=== PATIENT | male | born 1955 | race African-American/Black ===

== ENCOUNTER 2017-05-09 21:18 | Emergency (ER) | payer MEDICARE ==
[~2017-05-09] VITALS: Ht 170.2 cm; Wt 86.0 kg
[~2017-05-09 21:18] MED LIST: ALBU1AER INH; CLON.5 PO; GLIP5TAB8 PO; METF1000 PO; PERC5TAB12 PO; REME45TA PO
[2017-05-09 21:19] VITALS: BP 141/86; PULSE 94; RESP 16; TEMP 98; O2SAT 99
[2017-05-09] MEDS ORDERED: OMEGCAP PO (22:32)
[2017-05-09] MEDS ORDERED: GLIP10TA6 PO (22:32)
[2017-05-09] MEDS ORDERED: METF1000 PO (22:32)
[2017-05-09] MEDS ORDERED: MULT1TAB46 PO (22:32)
[2017-05-09] MEDS ORDERED: LOSA25TA PO (22:32)
[2017-05-09] MEDS ORDERED: ASPI81CH6 CHEW (22:32)
[2017-05-09] MEDS ORDERED: CLON0.5T PO (22:32)
[2017-05-09] MEDS ORDERED: VITA250T3 PO (22:32)
[2017-05-09 22:35] VITALS: BP 167/78; PULSE 78; RESP 16; O2SAT 99
[2017-05-09 22:39] VITALS: O2SAT 97
[2017-05-09 22:52] LABS: AUTOMATED NEUTROPHIL # 3.8 TH/MM3 (1.8-7.7); BASOPHIL # 0.1 TH/MM3 (0-0.2); BASOPHIL % 0.7 % (0.0-2.0); EOSINOPHIL # 0.2 TH/MM3 (0-0.4); EOSINOPHIL % 2.2 % (0.0-4.0); HEMATOCRIT 40.8 % (39.0-51.0); HEMOGLOBIN 13.7 GM/DL (13.0-17.0); LYMPH % 40.6 % (9.0-44.0); LYMPHOCYTE # 3.3 TH/MM3 (1.0-4.8); MEAN CORPUSCULAR HEMOGLOBIN 29.5 PG (27.0-34.0); MEAN CORPUSCULAR HGB CONC 33.5 % (32.0-36.0); MONO % 9.2 % (0.0-8.0); MONOCYTE # 0.7 TH/MM3 (0-0.9); NEUT % 47.3 % (16.0-70.0); PLATELET COUNT 290 TH/MM3 (150-450); RED BLOOD COUNT 4.64 MIL/MM3 (4.50-5.90); RED CELL DISTRIBUTION WIDTH 12.6 % (11.6-17.2)
--- NOTE | 2017-05-09 22:56 | RADRPT ---
EXAM DATE/TIME: 05/09/2017 22:43 [place] COMPARISON: No previous studies available for comparison. INDICATIONS : Chest pain; near syncopal episode. MEDICAL HISTORY : None. SURGICAL HISTORY : None. ENCOUNTER: Initial ACUITY: 1 day PAIN SCORE: 7/10 LOCATION: Bilateral chest FINDINGS: Single AP view of the chest. Mildly enlarged cardiac silhouette. Lungs are clear. No evidence of pleu ral effusion or pneumothorax. CONCLUSION: Mildly enlarged cardiac silhouette. No other acute cardiopulmonary disease identified. Dieudonne Higuera MD on May 09, 2017 at 22:50 Board Certified Radiologist. This report was verified electronically.
[2017-05-09 23:07] LABS: BICARBONATE 27.5 MEQ/L (21.0-32.0); BLOOD UREA NITROGEN 26 MG/DL (7-18); CALCIUM 9.3 MG/DL (8.5-10.1); CHLORIDE 102 MEQ/L (98-107); CREATININE 1.07 MG/DL (0.60-1.30); GLOMERULAR FILTRATION RATE 85 ML/MIN (>89); GLUCOSE,RANDOM 280 MG/DL (74-106); INTERNATIONAL NORMALIZED RATIO 1.1 RATIO; PROTHROMBIN TIME - PATIENT 10.7 SEC (9.8-11.6); SODIUM (NA) 138 MEQ/L (136-145); TROPONIN I LESS THAN 0.02 NG/ML (0.02-0.05)
[2017-05-09] MEDS ORDERED: KETOROLAC TROMETHAMINE 30 MG/ML (IVP) VIAL IV PUSH ONE (23:15)
--- NOTE | 2017-05-09 23:25 | PD ---
HPI Chief Complaint: Chest Pain Time Seen by Provider: 22:30 Travel History International Travel<30 days: No Contact w/Intl Traveler<30days: No Traveled to known affect area: No History of Present Illness HPI Patient is a 61-year-old male who says he is having left-sided shoulder area pain and he came when he was playing a video game and almost fell asleep but he said he was wide-awake when he started to not off it is kind of confusing story he did not fall he did not hit his head and it lasted just a brief second but he insists this is why he came to the ER he has a history of chest pain he says off and on for over years and his last stress test 3 months ago was normal in the ER he is not diaphoretic is not nausea is not vomiting no signs of any cardiac ischemia and process first EKG is normal sinus rhythm and his pressure is 167/70 he takes enalapril he reports for his blood pressure. Otherwise he is very healthy active younger than appearing 61-year-old who goes to the gym less weights and does cardiovascular workup he did not take anything to alleviate the pain he has not seen another doctor for this complaint movement seems to make it worse PFSH Past Medical History Anxiety: Yes Diabetes: Yes Patient Takes Glucophage: Yes Diminished Hearing: No Hypertension: Yes Tetanus Vaccination: < 5 Years Influenza Vaccination: Yes Social History Alcohol Use: No Tobacco Use: No Substance Use: No Allergies-Medications (Allergen,Severity, Reaction): Coded Allergies: penicillin G (Unverified Allergy, Mild, UNKNOWN- CHILD, 12/18/16) Reported Meds & Prescriptions Reported Meds & Active Scripts Active Reported Losartan (Losartan Potassium) 25 Mg Tab 25 Mg PO DAILY Aspirin Low Dose (Aspirin) 81 Mg Chew 81 Mg CHEW DAILY Multi Vitamin Daily (Multiple Vitamin) 1 Tab Tab 1 Tab PO DAILY [place]-3 Fish Oil/Vitamin (Fish Oil-Cholecalciferol) 1,000-1,000 Mg Cap 1 Cap PO DAILY Vitamin C (Ascorbic Acid) 250 Mg Tab 100 Mg PO DAILY Glipizide 10 Mg Tab 10 Mg PO QID Take 30 minutes before a meal Metformin (Metformin HCl) 1,000 Mg Tab 1,000 Mg PO BIDPC Clonazepam 0.5 Mg Tab 0.5 Mg PO BID PRN Review of Systems Except as stated in HPI: all other systems reviewed are Neg Cardiovascular: Positive: Chest Pain or Discomfort Physical Exam Narrative GENERAL: Nontoxic-appearing awake alert in no distress SKIN: Warm and dry. HEAD: Atraumatic. Normocephalic. EYES: Pupils equal and round. No scleral icterus. No injection or drainage. ENT: No nasal bleeding or discharge. Mucous membranes pink and moist. NECK: Trachea midline. No JVD. CARDIOVASCULAR: Regular rate and rhythm. Lung pressure 167/70 I am able to reproduce the pain is having in his chest but pushing on his ribs area third rib RESPIRATORY: No accessory muscle use. Clear to auscultation. Breath sounds equal bilaterally. GASTROINTESTINAL: Abdomen soft, non-tender, nondistended. Hepatic and splenic margins not palpable. MUSCULOSKELETAL: Extremities without clubbing, cyanosis, or edema. No obvious deformities. NEUROLOGICAL: Awake and alert. No obvious cranial nerve deficits. Motor grossly within normal limits. Five out of 5 muscle strength in the arms and legs. Normal speech. PSYCHIATRIC: Appropriate mood and affect; insight and judgment normal. Data Data Last Documented VS Vital Signs Date Time Temp Pulse Resp B/P (MAP) Pulse Ox O2 Delivery O2 Flow Rate FiO2 05/10/17 02:26 05/10/17 01:00 67 16 98 Room Air 05/09/17 21:19 98.0 Orders Orders Electrocardiogram (05/09/17 ) Complete Blood Count With Diff (05/09/17 22:33) Basic Metabolic Panel (Bmp) (05/09/17 22:33) Ckmb (Isoenzyme) Profile (05/09/17 22:33) Troponin I (05/09/17 22:33) Chest, Single Ap (05/09/17 22:33) Iv Access Insert/Monitor (05/09/17 22:33) Ecg Monitoring (05/09/17 22:33) Oxygen Administration (05/09/17 22:33) Oximetry (05/09/17 22:33) Prothrombin Time / Inr (Pt) (05/09/17 22:33) Act Partial Throm Time (Ptt) (05/09/17 22:33) Electrocardiogram (05/09/17 ) Ketorolac Inj (Toradol Inj) (05/09/17 23:15) CKMB (05/09/17 22:35) CKMB% (05/09/17 22:35) Troponin I (05/10/17 01:04) Labs Laboratory Tests Test 05/09/17 22:35 05/10/17 01:10 White Blood Count 8.0 TH/MM3 Red Blood Count 4.64 MIL/MM3 Hemoglobin 13.7 GM/DL Hematocrit 40.8 % Mean Corpuscular Volume 88.0 FL Mean Corpuscular Hemoglobin 29.5 PG Mean Corpuscular Hemoglobin Concent 33.5 % Red Cell Distribution Width 12.6 % Platelet Count 290 TH/MM3 Mean Platelet Volume 9.0 FL Neutrophils (%) (Auto) 47.3 % Lymphocytes (%) (Auto) 40.6 % Monocytes (%) (Auto) 9.2 % Eosinophils (%) (Auto) 2.2 % Basophils (%) (Auto) 0.7 % Neutrophils # (Auto) 3.8 TH/MM3 Lymphocytes # (Auto) 3.3 TH/MM3 Monocytes # (Auto) 0.7 TH/MM3 Eosinophils # (Auto) 0.2 TH/MM3 Basophils # (Auto) 0.1 TH/MM3 CBC Comment DIFF FINAL Differential Comment Prothrombin Time 10.7 SEC Prothromb Time International Ratio 1.1 RATIO Activated Partial Thromboplast Time 23.1 SEC Blood Urea Nitrogen 26 MG/DL Creatinine 1.07 MG/DL Random Glucose 280 MG/DL Calcium Level 9.3 MG/DL Sodium Level 138 MEQ/L Potassium Level 4.0 MEQ/L Chloride Level 102 MEQ/L Carbon Dioxide Level 27.5 MEQ/L Anion Gap 9 MEQ/L Estimat Glomerular Filtration Rate 85 ML/MIN Total Creatine Kinase 363 U/L Creatine Kinase MB 3.8 NG/ML Creatine Kinase MB % 1.0 % Troponin I LESS THAN 0.02 NG/ML LESS THAN 0.02 NG/ML MDM Medical Decision Making Medical Screen Exam Complete: Yes Emergency Medical Condition: Yes Differential Diagnosis Differential diagnosis includes costochondritis versus muscle strain versus pericarditis versus myocarditis versus cardiac ischemia versus rib Narrative Course labs normal pt pain relieved with toradol IV EKG normal Trop x 2 negative and signs symptoms point to muscle skeletal cause of pain. Diagnosis Primary Impression: Chest pain Qualified Codes: R07.9 - Chest pain, unspecified Additional Impressions: Costochondritis Cervical muscle strain Qualified Codes: S16.1XXA - Strain of muscle, fascia and tendon at neck level , initial encounter Disposition: 01 DISCHARGE HOME Condition: Good Mirza Jonas MD May 09, 2017 23:25
[2017-05-10 01:00] VITALS: BP 144/76; PULSE 67; RESP 16; O2SAT 98
--- NOTE | 2017-05-10 22:01 | EKG ---
Date Performed: 05/10/2017 Time Performed: 01:40:56 PTAGE: 61 years EKG: Sinus rhythm NONSPECIFIC T-WAVE ABNORMALITY BORDERLINE ECG PREVIOUS TRACING : 05/09/2017 22.07 Compared to prior tracing no significant change DOCTOR: Neptali Smith Interpretating Date/Time 05/10/2017 22:00:46
--- NOTE | 2017-05-10 22:17 | EKG ---
Date Performed: 05/09/2017 Time Performed: 22:07:49 PTAGE: 61 years EKG: Sinus rhythm NONSPECIFIC T-WAVE ABNORMALITY BORDERLINE ECG PREVIOUS TRACING : 11/15/2014 20.48 Compared to prior tracing no significant change DOCTOR: Neptali Smith Interpretating Date/Time 05/10/2017 22:15:31
== END 2017-05-10 02:34 | disposition home or self-care (01) ==
LOC: NEPE 21:18
DX: M94.0 Chondrocostal junction syndrome [Tietze] (principal); S16.1XXA Strain of muscle, fascia and tendon at neck level, initial encounter; E11.9 Type 2 diabetes mellitus without complications; F41.9 Anxiety disorder, unspecified; I10 Essential (primary) hypertension; Z88.0 Allergy status to penicillin; Z79.84 Long term (current) use of oral hypoglycemic drugs; X58.XXXA Exposure to other specified factors, initial encounter; Y93.C2 Activity, hand held interactive electronic device
CPT/HCPCS: 71045; 80048; 82550; 82552; 84484; 85025; 85610; 85730; 93005; 96374; 99285; J1885